=== PATIENT | female | born 1965 | race Caucasian/White ===

== ENCOUNTER 2017-08-21 11:36 | Emergency (ER) | payer BC, OTHER ==
[2017-08-21] MEDS ORDERED: Sodium Chloride 0.9% 1,000 ML IV ONE (11:59)
[2017-08-21] MEDS ORDERED: Ketorolac 30 MG/ML SDV IVPUSH ONE (12:00)
[2017-08-21] MEDS ORDERED: Ondansetron 4 MG/2 ML SDV IVPUSH ONE ×2 (12:01→15:03)
[2017-08-21] MEDS ORDERED: Acetaminophen 500 MG Tab PO ONE (12:01)
--- NOTE | 2017-08-21 12:07 | EDM.PDOC ---
ED HPI GENERAL MEDICAL PROBLEM - General Chief Complaint: Abdominal Pain Stated Complaint: POSSIBLE UTI PER PT Time Seen by Provider: 08/21/17 11:45 Source of Information: Reports: Patient History Limitations: Reports: No Limitations - History of Present Illness INITIAL COMMENTS - FREE TEXT/NARRATIVE: c/o abd pain and fever x 3d pain is in epigastrium, no radiation, n/v x 2d apap 1d ago, none today firm BM 1d ago, no change with BM no cigs, no alc abd surgery x 3: appy, choly, hys without oophorectomies last UTI 4y ago, had fever then pt thinks it is a UTI never had a colonoscopy Abdominal Pain Score (Numeric/FACES): 2 - Related Data Allergies Allergy/AdvReac Type Severity Reaction Status Date / Time No Known Allergies Allergy Verified 08/21/17 13:16 Home Meds: Home Meds Ciprofloxacin HCl [Cipro] 500 mg PO BID 7 Days #14 tablet 08/21/17 [Rx] Metoclopramide HCl 10 mg PO Q6H PRN #10 tablet 08/21/17 [Rx] metroNIDAZOLE [Metronidazole] 500 mg PO TID 7 Days #21 tablet 08/21/17 [Rx] ED ROS GENERAL - Review of Systems Review Of Systems: See Below Constitutional: Reports: Fever, Malaise HEENT: Reports: No Symptoms Respiratory: Reports: No Symptoms Cardiovascular: Reports: No Symptoms Endocrine: Reports: No Symptoms GI/Abdominal: Reports: Abdominal Pain, Nausea, Vomiting : Reports: No Symptoms, Other (strong odor). Denies: Dysuria, Frequency Musculoskeletal: Reports: No Symptoms Skin: Reports: No Symptoms Neurological: Reports: No Symptoms Psychiatric: Reports: No Symptoms Hematologic/Lymphatic: Reports: No Symptoms Immunologic: Reports: No Symptoms ED EXAM, GI/ABD - Physical Exam Exam: See Below Exam Limited By: No Limitations General Appearance: Alert, WD/WN, Mild Distress Ears: Normal External Exam, Normal Canal, Hearing Grossly Normal Nose: Normal Inspection, Normal Mucosa, No Blood Throat/Mouth: Normal Inspection, Normal Lips, Normal Voice, No Airway Compromise Head: Atraumatic, Normocephalic Neck: Normal Inspection, Supple, Non-Tender, Full Range of Motion Respiratory/Chest: No Respiratory Distress, Lungs Clear, Normal Breath Sounds, No Accessory Muscle Use, Chest Non-Tender Cardiovascular: Regular Rate, Rhythm, No Edema, No Murmur GI/Abdominal Exam: Soft, No Distention, No Mass, Other (1+ tender in epigastrium and a little lower in midline, 1+ tender under L subcostal margin, NT at flanks and lower quadrants, no CVAT b/l, BS present x 4 but dec'd, no guard/rebound) Back Exam: Normal Inspection, Full Range of Motion, NT Extremities: Normal Inspection, Normal Range of Motion, Non-Tender, No Pedal Edema Neurological: Alert, Oriented, CN II-XII Intact, Normal Cognition, No Motor/ Sensory Deficits Psychiatric: Normal Affect, Normal Mood Skin Exam: Warm, Dry, Intact, Normal Color, No Rash Lymphatic: No Adenopathy Course - Vital Signs Last Recorded V/S: Last Vital Signs Temp 36.9 C 08/21/17 13:00 Pulse 117 H 08/21/17 11:40 Resp 16 08/21/17 11:40 BP 137/87 08/21/17 11:40 Pulse Ox 98 08/21/17 11:40 - Orders/Labs/Meds Orders: Active Orders 24 hr Category Date Time Status Abdomen Pelvis w Cont [CT] Stat Exams 08/21/17 12:18 Ordered CULTURE BLOOD [BC] Urgent Lab 08/21/17 12:10 Received CULTURE BLOOD [BC] Urgent Lab 08/21/17 12:15 Received LIPASE [REF] Stat Lab 08/21/17 12:10 Received Sodium Chloride 0.9% [Normal Saline] 1,000 ml Med 08/21/17 13:45 Active IV ASDIRECTED Blood Culture x2 Reflex Set [OM.PC] Urgent Oth 08/21/17 11:59 Ordered Medication Orders Sodium Chloride (Normal Saline) 1,000 mls @ 999 mls/hr IV ASDIRECTED JULIA Last Admin: 08/21/17 13:45 Dose: 999 mls/hr Labs: Laboratory Tests 08/21/17 08/21/17 08/21/17 Range/Units 11:45 12:10 12:10 WBC (4.5-12.0) X10-3/uL RBC (3.23-5.20) x10(6)uL Hgb (11.5-15.5) g/dL Hct (30.0-51.3) % MCV (80-96) fL MCH (27.7-33.6) pg MCHC (32.2-35.4) g/dL RDW (11.5-15.5) % Plt Count (125-369) X10(3)uL MPV (7.4-10.4) fL Neut % (Auto) (46-82) % Lymph % (Auto) (13-37) % [place] % (Auto) (4-12) % Eos % (Auto) (1.0-5.0) % Baso % (Auto) (0-2) % Neut # (Auto) (1.6-8.3) # Lymph # (Auto) (0.6-5.0) # [place] # (Auto) (0.0-1.3) # Eos # (Auto) (0.0-0.8) # Baso # (Auto) (0.0-0.2) # Sodium 138 (135-145) mmol/L Potassium 3.6 (3.5-5.3) mmol/L Chloride 102 (100-110) mmol/L Carbon Dioxide 27 (21-32) mmol/L BUN 10 (7-18) mg/dL Creatinine 0.8 (0.55-1.02) mg/dL Est Cr Clr Drug Dosing TNP Estimated GFR (MDRD) > 60 (>60) BUN/Creatinine Ratio 12.5 (9-20) Glucose 103 (80-116) mg/dL Lactic Acid 0.8 (0.4-2.2) mmol/L Calcium 8.7 (8.6-10.2) mg/dL Total Bilirubin 0.7 (0.1-1.3) mg/dL AST 16 (5-25) IU/L ALT 18 (12-36) U/L Alkaline Phosphatase 91 (56-112) IU/L C-Reactive Protein (0.5-0.9) mg/dL Total Protein 7.7 (6.0-8.0) g/dL Albumin 3.7 (3.5-5.2) g/dL Globulin 4.0 g/dL Albumin/Globulin Ratio 0.9 Amylase 23 L (25-115) U/L Urine Color Yellow (YELLOW) Urine Appearance Slightly cloudy (CLEAR) Urine pH 5.0 (5.0-6.5) Ur Specific [place] 1.020 (1.010-1.025) Urine Protein Negative (NEGATIVE) mg/dL Urine Glucose (UA) Normal (NEGATIVE) mg/dL Urine Ketones Negative (NEGATIVE) mg/dL Urine Occult Blood Moderate H (NEGATIVE) Urine Nitrite Negative (NEGATIVE) Urine Bilirubin Negative (NEGATIVE) Urine Urobilinogen Normal (NEGATIVE) mg/dL Ur Leukocyte Esterase Large H (NEGATIVE) Urine RBC 5-10 (0) Urine WBC 50-75 H (0) Ur Squamous Epith Cells Many H (NS,R,O) Urine Bacteria Many H (NS) Coarse Granular Casts Few H (NS) Urine Mucus (NS) 08/21/17 08/21/17 08/21/17 Range/Units 12:10 12:15 13:15 WBC 6.2 (4.5-12.0) X10-3/uL RBC 4.86 (3.23-5.20) x10(6)uL Hgb 13.7 (11.5-15.5) g/dL Hct 39.8 (30.0-51.3) % MCV 81.7 (80-96) fL MCH 28.2 (27.7-33.6) pg MCHC 34.5 (32.2-35.4) g/dL RDW 12.3 (11.5-15.5) % Plt Count 221 (125-369) X10(3)uL MPV 8.3 (7.4-10.4) fL Neut % (Auto) 72.8 (46-82) % Lymph % (Auto) 18.2 (13-37) % [place] % (Auto) 8.1 (4-12) % Eos % (Auto) 0 L (1.0-5.0) % Baso % (Auto) 1 (0-2) % Neut # (Auto) 4.6 (1.6-8.3) # Lymph # (Auto) 1.1 (0.6-5.0) # [place] # (Auto) 0.5 (0.0-1.3) # Eos # (Auto) 0.0 (0.0-0.8) # Baso # (Auto) 0.0 (0.0-0.2) # Sodium (135-145) mmol/L Potassium (3.5-5.3) mmol/L Chloride (100-110) mmol/L Carbon Dioxide (21-32) mmol/L BUN (7-18) mg/dL Creatinine (0.55-1.02) mg/dL Est Cr Clr Drug Dosing Estimated GFR (MDRD) (>60) BUN/Creatinine Ratio (9-20) Glucose (80-116) mg/dL Lactic Acid (0.4-2.2) mmol/L Calcium (8.6-10.2) mg/dL Total Bilirubin (0.1-1.3) mg/dL AST (5-25) IU/L ALT (12-36) U/L Alkaline Phosphatase (56-112) IU/L C-Reactive Protein 4.4 H* (0.5-0.9) mg/dL Total Protein (6.0-8.0) g/dL Albumin (3.5-5.2) g/dL Globulin g/dL Albumin/Globulin Ratio Amylase (25-115) U/L Urine Color Yellow (YELLOW) Urine Appearance Clear (CLEAR) Urine pH 5.0 (5.0-6.5) Ur Specific [place] 1.020 (1.010-1.025) Urine Protein Negative (NEGATIVE) mg/dL Urine Glucose (UA) Normal (NEGATIVE) mg/dL Urine Ketones 50 H (NEGATIVE) mg/dL Urine Occult Blood Moderate H (NEGATIVE) Urine Nitrite Negative (NEGATIVE) Urine Bilirubin Negative (NEGATIVE) Urine Urobilinogen Normal (NEGATIVE) mg/dL Ur Leukocyte Esterase Negative (NEGATIVE) Urine RBC 0-5 (0) Urine WBC 0-5 (0) Ur Squamous Epith Cells Rare (NS,R,O) Urine Bacteria Few H (NS) Coarse Granular Casts (NS) Urine Mucus Moderate H (NS) Meds: Medications Generic Name Dose Route Start Last Admin Trade Name Freq PRN Reason Stop Dose Admin Sodium Chloride 1,000 mls @ 999 mls/hr 08/21/17 13:45 08/21/17 13:45 Normal Saline IV 999 mls/hr ASDIRECTED JULIA Administration Discontinued Medications Generic Name Dose Route Start Last Admin Trade Name Freq PRN Reason Stop Dose Admin Acetaminophen 1,000 mg 08/21/17 12:01 08/21/17 12:32 Tylenol Extra Strength PO 08/21/17 12:02 1,000 mg ONETIME ONE Administration Al Hydroxide/Mg Hydroxide 30 ml 08/21/17 15:03 08/21/17 15:12 Mag-Al Susp PO 08/21/17 15:04 Not Given Q4H ONE Diatrizoate Meglum/Diatrizoate Sod 30 ml 08/21/17 13:17 08/21/17 14:53 Gastrografin 37% PO 08/21/17 13:18 30 ml . DIRECTED ONE Administration Sodium Chloride 1,000 mls @ 999 mls/hr 08/21/17 11:59 08/21/17 12:31 Normal Saline IV 08/21/17 12:59 999 mls/hr .BOLUS ONE Administration Iopamidol 100 ml 08/21/17 14:48 08/21/17 14:54 Isovue-370 (76%) IV 08/21/17 14:49 100 ml ONETIME ONE Administration Ketorolac Tromethamine 30 mg 08/21/17 12:00 08/21/17 12:38 Toradol IVPUSH 08/21/17 12:01 Not Given ONETIME ONE Lidocaine HCl 30 ml 08/21/17 15:04 08/21/17 15:12 Xylocaine 2% Viscous PO 08/21/17 15:05 Not Given ONETIME ONE Ondansetron HCl 4 mg 08/21/17 12:01 08/21/17 12:33 Zofran IVPUSH 08/21/17 12:02 4 mg ONETIME ONE Administration Ondansetron HCl 4 mg 08/21/17 15:03 08/21/17 15:08 Zofran IVPUSH 08/21/17 15:04 4 mg ONETIME ONE Administration - Re-Assessments/Exams Free Text/Narrative Re-Assessment/Exam: 08/21/17 16:04 nausea better after Zofran 4 mg IV x 2, pain better after 2 liters NS, now minimal tender in epigastrium CBC & CMP and u/a all neg CRP inc'd 4.4 CT with minimal diverticulosis and no CT evidence of diverticulitis however 3d h/o abd pain and fever and inc'd CRP suspicious for subacute diverticulitis even with a normal CT, will treat empirically as 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 Avoid fatty foods or large meals. Eat softer foods. Rest. No work until 08/24. For infection, take ciprofloxacin 500 mg 1 tab 2 times a day for 7 days. For infection, take metronidazole 500 mg 1 tab 3 times a day for 7 days. For nausea, take metronidazole 10 mg 1 tab every 6 hours as needed. See Dr Ramires in 2 days. Return to ED if you are feeling worse. Call your Physician or Return to Emergency Department if: * Your condition worsens in any way. * You develop fever greater than 100.4. * You have vomitting that does not stop with medications. * You have pain that is not controlled with medications. - My Orders Last 24 Hours: My Active Orders 08/21/17 11:59 Blood Culture x2 Reflex Set [OM.PC] Urgent 08/21/17 12:10 CULTURE BLOOD [BC] Urgent LIPASE [REF] Stat 08/21/17 12:15 CULTURE BLOOD [BC] Urgent 08/21/17 12:18 Abdomen Pelvis w Cont [CT] Stat 08/21/17 13:45 Sodium Chloride 0.9% [Normal Saline] 1,000 ml IV ASDIRECTED - Assessment/Plan Last 24 Hours: My Active Orders 08/21/17 11:59 Blood Culture x2 Reflex Set [OM.PC] Urgent 08/21/17 12:10 CULTURE BLOOD [BC] Urgent LIPASE [REF] Stat 08/21/17 12:15 CULTURE BLOOD [BC] Urgent 08/21/17 12:18 Abdomen Pelvis w Cont [CT] Stat 08/21/17 13:45 Sodium Chloride 0.9% [Normal Saline] 1,000 ml IV ASDIRECTED
[2017-08-21] MEDS ORDERED: Diatrizoate Meglumine/Diatrizoate Sodium 37% 30 ML Bottle PO ONE (13:17)
[2017-08-21] MEDS ORDERED: Sodium Chloride 0.9% 1,000 ML IV SCH (13:45)
[2017-08-21] MEDS ORDERED: Iopamidol 755 Mg/ML 100 ML Bottle IV ONE (14:48)
[2017-08-21] MEDS ORDERED: Aluminum Hydroxide/Magnesium Hydroxide Susp 30 ML Cup PO ONE (15:03)
[2017-08-21] MEDS ORDERED: Lidocaine 2% Viscous Solution 15 ML Cup PO ONE (15:04)
[2017-08-21] MEDS ORDERED: metroNIDAZOLE 500 MG Tab PO ONE (16:02)
[2017-08-21] MEDS ORDERED: Ciprofloxacin 500 MG Tab PO ONE (16:03)
[2017-08-21] MEDS ORDERED: Metoclopramide 10 MG Tab PO PRN (16:07)
[2017-08-21] MEDS: metroNIDAZOLE 500 MG Tab PO ONE (16:27)
[2017-08-21] MEDS ORDERED: Ciprofloxacin 500 MG Tab PO SCH (21:00)
[2017-08-22] MEDS: metroNIDAZOLE 500 MG Tab PO ONE (09:40)
== END 2017-08-21 16:25 | disposition home or self-care (01) ==
LOC: FB.ED 11:36
DX: E86.0 Dehydration (principal); R79.82 Elevated C-reactive protein (CRP); R50.9 Fever, unspecified; R10.9 Unspecified abdominal pain
CPT/HCPCS: 74177; 80053; 81001; 82150; 83605; 83690; 85025; 86140; 87040; 96361; 96374; 96376; 99284; A9270; J2405; J7040; Q9967; 36415